=== PATIENT | male | born 1950 | race Caucasian/White ===

== ENCOUNTER 2024-03-08 12:40 | Emergency (ER) | payer MEDICARE, OTHER, SELFPAY ==
[2024-03-08] VITALS (8 sets, daily range): BP systolic 160–195; BP diastolic 93–111; BMI 35.7
[2024-03-08 14:34] LABS: Hematocrit 41.6 % (39.0-52.0); Hemoglobin 14.1 g/dL (13.0-18.0); Mean Corp Hgb Conc. 33.9 g/dL (33.0-37.0); Mean Corpuscular Hgb 28.3 pg (27.0-31.0); Mean Corpuscular Volume 83.4 fL (80.0-94.0); Mean Platelet Volume 12.3 fL (7.4-10.4); Platelet Count 166 10^3/uL (130-400); Red Blood Cell Count 4.99 10^6/uL (4.70-6.10); Red Cell Dist. Width 12.8 % (11.5-14.5); White Blood Cell Count 5.9 10^3/uL (4.8-10.8)
--- NOTE | 2024-03-08 14:40 | ED.GENMED ---
History of Present Illness
General
Chief Complaint: Chest Pain
Source: patient
Time Seen by Provider: 03/08/24 13:57
Travel History
Have you had any contact with someone who has COVID-19?: No
Do you have any symptoms of coronavirus? Fever > 100 degrees, chills, cough, shortness of breath, sore throat, loss of taste or smell, muscle aches, or headache?: No
History of Present Illness
History of Present Illness:
This patient is a 73-year-old male presents emergency department with complaints of left-sided chest started about 3 days ago, has been continuous, but is now no longer present. It went away at approximately noon today. He describes it as very
'little bit of pain', gradual in onset, without radiation, exacerbating, relieving factors. Is not pleuritic in nature. He also felt a little dyspneic yesterday now fully resolved. He denies infectious symptoms such as fever, chills, cough, sore
throat, rhinorrhea. He describes feeling more fatigued than usual. 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 Patient denies back pain, headache, dizziness, new leg swelling, abdominal pain,
nausea, vomiting, or other complaints.
Past History
Past History
ED Past Medical History: Arrthythmia, CAD, HTN and Hypercholesterolemia
ED Past Surgical History: Cardiac (Cardiac stents), Urological (Right kidney biopsy) and Other (Right inguinal hernia repair, sinus surgery)
Social History
Tobacco: Non-smoker
Alcohol: None
Drug: None
Personal:
Living: with family
Employment: Employed
Family History
Family History: Other (Noncontributory)
Phy Exam
Physical Exam
Physical Exam:
GENERAL: Alert , in no apparent distress
EYE: pupils equal and reactive
NECK: Supple, no significant adenopathy.
ENT: o/p clr, mmm.
CARDIAC: Irregular irregular
LUNGS: Clear breath sounds bilaterally, no acute respiratory distress, no wheezes/rales/rhonchi
ABDOMEN: Soft, without focal tenderness, no r/g, no cvat
NEUROLOGICAL: Alert and oriented, no focal neuro deficits
SKIN: Warm and dry, skin intact.
MUSCULOSKELETAL: No edema, well perfused.
PSYCH: Normal and appropriate interaction.
Scores
Heart Score for Chest Pain Patients
STEMI patient?: Not applicable
Course
Orders/Labs/Results
Orders:
Orders
03/08/24 12:42
Electrocardiogram (*1) Urgent
Reason for Study: Chest Pain
EKG- Treatment ONCE
03/08/24 14:16
Cardiac Monitoring- Treatment ONCE
03/08/24 14:23
Complete Blood Count/No Diff Urgent
03/08/24 15:01
Comprehensive Metabolic Panel Routine
Troponin I Routine
03/08/24 18:09
Troponin I Urgent
Abnormal Lab Results
03/08/24 03/08/24
14:23 15:01
MPV 12.3 H fL
(7.4-10.4)
Glucose 107 H mg/dl
(70-99)
03/08/24 14:23
03/08/24 15:01
Vital Signs
Initial and Last Documented VS:
Initial Vital Signs
Temp Pulse Resp BP Pulse Ox
97.9 F 60 20 195/98 100
03/08/24 12:42 03/08/24 12:42 03/08/24 12:42 03/08/24 12:42 03/08/24 12:42
Last Documented Vital Signs
Temp Pulse Resp BP Pulse Ox
97.8 F 59 18 160/103 96
03/08/24 16:30 03/08/24 19:30 03/08/24 19:30 03/08/24 19:00 03/08/24 19:30
*Critical Care Note
Total Time (30-74mins, 75-104mins- exclusive of procedures): Not Applicable
Update Note
Update Note:
Patient presents to the Emergency Department with fatigue chest pain dyspnea____
Number and Complexity of Problems Addressed at the Encounter
� Chronic conditions affecting care:
� Acute Exacerbation and/or Progression of Chronic Illness:
� Differential Diagnosis includes: But not limited to ACS, arrhythmia, electrolyte disorder, etc.
Amount and/or Complexity of Data to be Reviewed and Analyzed
� I performed an independent evaluation of and my interpretation is:
EKG: Read by me, tSeve-amber, rate 65, no acute ischemia
CT:
Xrays:
Laboratory Studies:unremarkable
Other:
� Review of other/old records reveals:
� Clinical information was obtained by an independent historian: Son who is bedside
� Prescriptions/Medications Considered but not given: Considered anticoagulation however patient is already fully anticoagulated.
� Further testing considered but not performed:
Risk of Complications and/or Morbidity or Mortality of Patient Management
� Social determinants of health affecting care:
� Discussion with other providers (PCP, Hospitalists, Consultants, etc):
� Escalation of care including admission/observation vs risk of discharge considered:451pm reasessment, pt remains stable, comfortable, no complnts. Dw him findings thus far, recommendation for repeat trop. If wnl, will d/c with
recommendatino for cards f/u. Aware he is in afib, however he is on a DOAC and no rvr or sxs related.
ED Attending Note
-
Portions of this chart may have been created with voice recognition software.� Occasional wrong word or��sound alike� substitutions may have occurred due to the inherent limitations of voice recognition software.
Discharge Plan
Departure
Patient Disposition: Home (Routine Discharge)
Patient with high blood pressure during this ER visit?: Yes
Condition: Good
Discharge Problem:
Chest pain
Instructions: Chest Pain DCA Follow Up, BLOOD PRESSURE
Prescriptions:
No Action
atorvastatin 40 MG tablet
40 mg PO HS
finasteride 5 MG tablet
5 mg PO HS
aspirin 81 MG tablet,delayed release (DR/EC)
81 mg PO HS
metoprolol succinate 25 MG tablet extended release 24 hr
25 mg PO HS Qty: 60 0RF
apixaban [Eliquis] 5 MG tablet
5 mg PO BID Qty: 120 0RF
cephalexin 500 mg capsule
500 mg PO Q8H 7 Days Qty: 21 0RF
prednisone 20 mg tablet
40 mg PO DAILY Qty: 8 0RF
omeprazole 40 mg capsule,delayed release(DR/EC)
40 mg PO DAILY Qty: 5 0RF
Referrals:
Russel Gupta MD [Family Provider] -
Activity Restrictions/Additional Instructions:
YOUR BLOOD PRESSURE IS ELEVATED TODAY. PLEASE TAKE YOUR BLOOD PRESSURE MEDICATION DIRECTED, AND CONTACT YOUR SLUDGE CONTROL OPERATOR TOMORROW FOR CONTINUED FOLLOW UP. IF YOU DEVELOP CHEST PAIN, TROUBLE BREATHING, VOMITING, DIZZINESS, OR OTHER WORRISOME
SIGNS, GO TO THE ER IMMEDIATELY!
Interventions
Interventions:
*Risk Screen - Suicide Last Done: 03/08/24 19:41
*General Assessment Last Done: 03/08/24 14:00
*Neglect/Abuse Screening Last Done: 03/08/24 14:00
ED- Fall Risk Assessment Last Done: 03/08/24 15:18
*ED COVID-19 Vaccine History Last Done: 03/08/24 14:00
*Nursing Disposition Last Done: 03/08/24 19:41
ED- Cardiac Assessment Last Done: 03/08/24 15:18
Discharge Date and Time
Discharge Date/Time: 03/08/24 19:42
Print Language: LATVIAN
[2024-03-08 15:21] LABS: ALT (SGPT) 16 U/L (0-50); AST (SGOT) 21 U/L (17-59); Albumin 3.8 g/dl (3.5-5.0); Alkaline Phosphatase 109 U/L (38-126); Blood Urea Nitrogen 18 mg/dl (9-20); Calcium 9.2 mg/dl (8.4-10.2); Carbon Dioxide 30 mmol/L (22-30); Chloride 104 mmol/L (98-107); Estimated Creatinine Clearance 87 ml/min; Glucose 107 mg/dl (70-99); Potassium 4.6 mmol/L (3.5-5.1); Sodium 139 mmol/L (135-145); Total Bilirubin 1.3 mg/dl (0.2-1.3); Total Protein 6.6 g/dl (6.3-8.2); eGFR > 60.00
[2024-03-08 15:32] LABS: Troponin I < 0.012 ng/ml
[2024-03-08 18:39] LABS: Troponin I < 0.012 ng/ml
== END 2024-03-08 19:42 | disposition home or self-care (01) ==
LOC: EMR 12:40
PROVIDERS: EMERGENCY PHYSICIAN Emergency Medicine; FAMILY PHYSICIAN Internal Medicine; OTHER PHYSICIAN Internal Medicine Interventional Cardiology
DX: R07.89 Other chest pain (principal); I25.10 Atherosclerotic heart disease of native coronary artery without angina pectoris; I10 Essential (primary) hypertension; E78.00 Pure hypercholesterolemia, unspecified; I48.91 Unspecified atrial fibrillation; Z95.5 Presence of coronary angioplasty implant and graft
CPT/HCPCS: 99283; 80053; 84484; 85027; 93005

== ENCOUNTER 2024-09-01 05:28 | Emergency (ER) | payer MEDICARE, OTHER, SELFPAY ==
[2024-09-01 05:36] VITALS: BP 170/90
[2024-09-01 06:12] VITALS: BMI 35.4
--- NOTE | 2024-09-01 07:46 | ED.GENMED ---
History of Present Illness
General
Chief Complaint: Nose Bleed
Source: patient
Exam Limitations: none
Time Seen by Provider: 09/01/24 07:22
History of Present Illness
History of Present Illness:
74-year-old male on Eliquis presents with onset of left-sided nasal bleeding starting this morning. It has been ongoing since then he has been unable to get a stop bleeding. Last dose of Eliquis was last evening. He has dealt with this in the
past occasionally. He denies lightheadedness shortness of breath or headache. No other
Past History
Past History
ED Past Medical History: Arrthythmia, CAD, HTN and Hypercholesterolemia
ED Past Surgical History: Cardiac (Cardiac stents), Urological (Right kidney biopsy) and Other (Right inguinal hernia repair, sinus surgery)
Social History
Tobacco: Non-smoker
Alcohol: None
Drug: None
Personal:
Living: with family
Employment: Employed
Family History
Family History: Other (Noncontributory)
Phy Exam
Physical Exam
Physical Exam:
General: Well-appearing male no acute respiratory distress
HEENT: Normal atraumatic left nasal cavity inspected after current packing was removed. Large clot was removed from the nose. There is an area of bleeding noted in anterior aspect of the medial portion of the left side of the nose.
Extremities: No cyanosis
Course
Vital Signs
Initial and Last Documented VS:
Initial Vital Signs
Temp Pulse Resp BP Pulse Ox
98 F 66 22 170/90 98
09/01/24 05:36 09/01/24 05:36 09/01/24 05:36 09/01/24 05:36 09/01/24 05:36
Last Documented Vital Signs
Temp Pulse Resp BP Pulse Ox
98 F 67 16 140/89 96
09/01/24 05:36 09/01/24 09:03 09/01/24 09:03 09/01/24 09:03 09/01/24 09:03
MDM/Problems Addressed
Differential Diagnosis Includes:
Left sided anterior epistaxis. On Eliquis. Vital signs are stable. He is alert and oriented. Large clot was removed from the left side of the nose with suction and with gravity. Piece of cotton infused with lidocaine and epinephrine was stuffed
into the left side of the nose to provide hemostasis. Will attempt to cauterize if able to.
*Critical Care Note
Total Time (30-74mins, 75-104mins- exclusive of procedures): Not Applicable
Update Note
Update Note:
Patient reevaluated multiple times. Patient blood through silver nitrate. Tried Merocel sponge which she bled through. Then tried Surgicel which the patient blood flew. I then placed a 5.5 cm anterior balloon. This was inflated. He was
reexamined multiple times and there was no further bleeding. Recommend follow-up with ENT. Stable for discharge.
ED Attending Note
-
Portions of this chart may have been created with voice recognition software.� Occasional wrong word or��sound alike� substitutions may have occurred due to the inherent limitations of voice recognition software.
Discharge Plan
Departure
Patient Disposition: Home (Routine Discharge)
Date of Disposition: 09/01/24
Time of Disposition: 10:17
Patient with high blood pressure during this ER visit?: No
Discharge Problem:
Acute anterior epistaxis
Instructions: Nosebleeds (DC)
Prescriptions:
No Action
atorvastatin 40 MG tablet
40 mg PO HS
finasteride 5 MG tablet
5 mg PO HS
metoprolol succinate 25 MG tablet extended release 24 hr
25 mg PO HS Qty: 60 0RF
Eliquis 5 MG tablet
5 mg PO BID Qty: 120 0RF
bumetanide 1 mg Tablet
1 mg PO DAILY
amlodipine
1 pill PO DAILY
Rx Instructions:
unknown dose
carvedilol
6.25 mg PO BID
tamsulosin
0.4 mg PO DAILY
valsartan
160 mg PO DAILY
omeprazole 40 mg capsule,delayed release(DR/EC)
40 mg PO DAILY PRN (Reason: reflux)
Referrals:
Russel Gupta MD [Family Provider] -
Gisell Osorio MD [Active] -
Activity Restrictions/Additional Instructions:
Keep current packing in until seen by ENT. Please return here if worse
Interventions
Interventions:
*Risk Screen - Suicide Last Done: 09/01/24 05:36
*General Assessment Last Done: 09/01/24 06:13
*Neglect/Abuse Screening Last Done: 09/01/24 05:36
ED-EENT Assessment Last Done: 09/01/24 06:16
Discharge Date and Time
Print Language: DANISH
[2024-09-01 09:03] VITALS: BP 140/89
== END 2024-09-01 10:41 | disposition home or self-care (01) ==
LOC: EMR 05:28
PROVIDERS: EMERGENCY PHYSICIAN Emergency Medicine; FAMILY PHYSICIAN Internal Medicine
DX: R04.0 Epistaxis (principal); I25.10 Atherosclerotic heart disease of native coronary artery without angina pectoris; I10 Essential (primary) hypertension; E78.00 Pure hypercholesterolemia, unspecified; Z95.5 Presence of coronary angioplasty implant and graft
CPT/HCPCS: 99282; 30901

== ENCOUNTER 2025-07-03 08:21 | Emergency (ER) | payer MEDICARE, OTHER, SELFPAY ==
[2025-07-03 08:23] VITALS: BP 192/106
[2025-07-03 08:42] VITALS: BMI 32.9
--- NOTE | 2025-07-03 09:06 | ED.GENMED ---
History of Present Illness
General
Chief Complaint: Swelling
Source: patient
Exam Limitations: none
Time Seen by Provider: 07/03/25 08:52
Nursing documentation reviewed up to this point in time: agreed with
History of Present Illness
History of Present Illness:
Note:
CHIEF COMPLAINT(S)
Swelling and itching in the forearm following a possible insect bite.
HISTORY OF PRESENT ILLNESS
The patient is a 75-year-old male who presents with symptoms of swelling and itching in the forearm, which began after cleaning leaves the previous morning. The patient describes feeling 'like a thousand maybe... small bugs' during the activity,
suggesting potential insect bites. The symptoms started approximately 24 hours ago, around 9 AM yesterday. The patient applied alcohol and hydrocortisone cream to the affected area but did not take any oral medications. There is a concern for an
allergic reaction, and the patient reports that the area has become swollen and itchy.
PAST MEDICAL AND SURIGICAL HISTORY
The patient is currently on blood pressure medication and blood thinners.
CHRONIC MEDICAL CONDITIONS SIGNIFICANTLY AFFECTING CARE
The patient is on blood thinners, indicating a possible history relevant to cardiovascular conditions. However, the patient denies atrial fibrillation.
SOCIAL HISTORY
The patient denies smoking, alcohol consumption, and drug use.
MEDICATIONS
- Blood pressure medication
- Blood thinner taken in the morning
PHYSICAL EXAM
General: Alert, no acute distress.
Skin: Warm, with evidence of swelling on the forearm.
Head: Normocephalic, atraumatic.
Neck: Supple, trachea midline.
Eyes, ears, nose, mouth, and throat: Oral mucosa moist.
Cardiovascular: Normal peripheral perfusion, No edema.
Respiratory: Respirations are non-labored.
Gastrointestinal: Abdomen nondistended.
Back: Normal range of motion, Normal alignment.
Musculoskeletal: Normal ROM, normal strength. right forearm erythema, swelling, soft compartments
Neurological: Alert and oriented to person, place, time, and situation, No focal neurological deficit observed.
Psychiatric: Cooperative, appropriate mood & affect.
PLAN
1. Initiate a course of oral steroids to address the allergic reaction.
2. Start antibiotics to prevent secondary infection.
3. Advise the patient to keep the affected arm elevated to help reduce swelling.
4. Recommend applying ice to the affected area to alleviate symptoms.
DIFFERENTIAL DIAGNOSIS
The Differential Diagnosis includes, in no particular order and is not limited to:
1. Allergic reaction to insect bite
2. Cellulitis
3. Dermatitis
4. Contact dermatitis due to plant exposure
5. Venous stasis dermatitis
6. Urticaria
7. Insect sting hypersensitivity
8. Superficial thrombophlebitis
9. Lymphedema
10. Soft tissue infection
CARE-UPDATE
07/03/25 - 09:13
The patient continues to exhibit swelling and elevated blood pressure. Notable severe reaction to multiple insect bites, now managing with topical antibiotics and oral prednisone. Monitoring for potential compartment syndrome signs in the right
forearm.
Disposition:
SUMMARY OF ENCOUNTER
The patient presented to the emergency department with symptoms of swelling and itching in the right forearm, suspected to have arisen from multiple insect bites while cleaning leaves. He experienced significant swelling and itching approximately 24
hours after the incident. The condition was managed in the emergency department with a focus on reducing the allergic reaction and preventing a potential secondary infection.
DISPOSITION
Discharge.
ASSESSMENT
The patient is experiencing an allergic reaction potentially due to insect bites. There is a concern for a possible secondary soft tissue infection which is being proactively managed.
PLAN
Initiate a short course of oral prednisone to address the allergic reaction. Prescribe an antibiotic, cephalexin, to prevent secondary infection. Advise the patient to elevate the affected arm and to follow up with primary care to reassess swelling
and any progression of symptoms.
PATIENT EDUCATION AND COUNSELING
The patient was advised on how to manage the swelling and itching at home, including keeping the arm elevated and applying ice as needed. Return precautions and signs of potential worsening conditions or complications were thoroughly discussed.
FOLLOW-UP INSTRUCTIONS
The patient was instructed to schedule a follow-up visit with his primary care physician to re-evaluate the forearms condition and ensure the effectiveness of the treatment.
MEDICATION RECONCILIATION
Prednisone prescribed for a short course. Cephalexin prescribed for infection prevention.
MEDICAL DECISION MAKING
-Complexity of Data Reviewed: Chronic conditions affecting care include the patients history of cardiovascular conditions managed by blood pressure medications and blood thinners. Differential diagnoses considered were an allergic reaction to insect
bites, cellulitis, dermatitis, contact dermatitis due to plant exposure, venous stasis dermatitis, urticaria, insect sting hypersensitivity, superficial thrombophlebitis, lymphedema, and soft tissue infection.
-Data:
Category 1: Reviews of external records were not explicitly mentioned.
-Risk: Consideration of Admission/Observation: Escalation of care including admission/observation was considered given the complexity and risk of the patients presenting complaint, exam findings, and underlying comorbidities. However, ultimately the
patient is considered safe for outpatient management with close follow-up. Work-up is reassuring and does not reveal any acute life/organ threatening processes; patients symptoms are well controlled upon reevaluation; reexamination is reassuring;
vitals are stable; the patient agrees with discharge and is reliable for follow-up.
DIAGNOSIS
Allergic reaction from insect bites (ICD-10: T78.40XA) and possible secondary infection (ICD-10: L03.90).
Past History
Past History
ED Past Medical History: Arrthythmia, CAD, HTN and Hypercholesterolemia
ED Past Surgical History: Cardiac (Cardiac stents), Urological (Right kidney biopsy) and Other (Right inguinal hernia repair, sinus surgery)
Social History
Tobacco: Non-smoker
Alcohol: None
Drug: None
Personal:
Living: with family
Employment: Employed
Family History
Family History: Other (Noncontributory)
Phy Exam
Physical Exam
Physical Exam:
.
Scores
Heart Failure Risk
Heart Failure Risk Score: Not Applicable
Course
Orders/Labs/Results
Orders:
Orders
07/03/25 09:05
Ice Pack-Treatment DIRECTED
Location: forearm right
Vital Signs- Treatment ONCE
Frequency: Once
Prednisone [Deltasone] 50 mg PO NOW STA
Vital Signs
Initial and Last Documented VS:
Initial Vital Signs
Temp Pulse Resp BP Pulse Ox
98.6 F 85 16 192/106 99
07/03/25 08:23 07/03/25 08:23 07/03/25 08:23 07/03/25 08:23 07/03/25 08:23
Last Documented Vital Signs
Temp Pulse Resp BP Pulse Ox
98.6 F 85 16 192/106 99
07/03/25 08:23 07/03/25 08:23 07/03/25 08:23 07/03/25 08:23 07/03/25 09:06
*Pulse Oximetry
SaO2: 99
Oxygen Mode of Delivery: Room air
Patient hypoxic: no
*Critical Care Note
Total Time (30-74mins, 75-104mins- exclusive of procedures): Not Applicable
ED Attending Note
-
Portions of this chart may have been created with voice recognition software.� Occasional wrong word or��sound alike� substitutions may have occurred due to the inherent limitations of voice recognition software.
Discharge Plan
Departure
Patient Disposition: Home (Routine Discharge)
Date of Disposition: 07/03/25
Time of Disposition: 09:07
Patient with high blood pressure during this ER visit?: Yes
Discharge Problem:
Insect bite of forearm, right
Instructions: Insect bites and stings - ED (DC)
Prescriptions:
New
cephalexin 500 mg capsule
500 mg PO TID 7 Days Qty: 21 0RF
prednisone 50 mg tablet
50 mg PO DAILY Qty: 5 0RF
No Action
atorvastatin 40 MG tablet
40 mg PO HS
finasteride 5 MG tablet
5 mg PO HS
metoprolol succinate 25 MG tablet extended release 24 hr
25 mg PO HS Qty: 60 0RF
Eliquis 5 MG tablet
5 mg PO BID Qty: 120 0RF
bumetanide 1 mg Tablet
1 mg PO DAILY
amlodipine
1 pill PO DAILY
Rx Instructions:
unknown dose
carvedilol
6.25 mg PO BID
tamsulosin
0.4 mg PO DAILY
valsartan
160 mg PO DAILY
omeprazole 40 mg capsule,delayed release(DR/EC)
40 mg PO DAILY PRN (Reason: reflux)
Activity Restrictions/Additional Instructions:
Follow up with primary care in 3-5 days. Return for any concerns. Elevate the arm above your heart at all times.
Interventions
Interventions:
*Risk Screen - Suicide Last Done: 07/03/25 08:23
*General Assessment Last Done: 07/03/25 08:23
*Neglect/Abuse Screening Last Done: 07/03/25 08:23
*ED- Fall Risk Assessment Last Done: 07/03/25 08:40
*ED COVID-19 Vaccine History Last Done: 07/03/25 08:23
ED- Cardiac Assessment Last Done: 07/03/25 08:40
ED- Pulmonary Assessment Last Done: 07/03/25 08:40
ED-Skin Assessment Last Done: 07/03/25 08:40
Discharge Date and Time
Print Language: [id number]
[2025-07-03 09:35] VITALS: BP 151/94
[2025-07-03] MEDS: DELTASONE 50 MG PO (09:35)
== END 2025-07-03 09:39 | disposition home or self-care (01) ==
LOC: EMR 08:21
PROVIDERS: EMERGENCY PHYSICIAN Emergency Medicine; FAMILY PHYSICIAN Internal Medicine
DX: T63.481A Toxic effect of venom of other arthropod, accidental (unintentional), initial encounter (principal); Y93.H2 Activity, gardening and landscaping; I25.10 Atherosclerotic heart disease of native coronary artery without angina pectoris; I49.9 Cardiac arrhythmia, unspecified; I10 Essential (primary) hypertension; E78.00 Pure hypercholesterolemia, unspecified; Z79.01 Long term (current) use of anticoagulants; Z95.5 Presence of coronary angioplasty implant and graft
CPT/HCPCS: 99283

== ENCOUNTER 2025-08-15 14:11 | Emergency (ER) | payer MEDICARE, OTHER, SELFPAY ==
[2025-08-15 14:13] VITALS: BP 185/104
[2025-08-15 14:35] LABS: Hematocrit 43.0 % (39.0-52.0); Hemoglobin 14.2 g/dL (13.0-18.0); Mean Corp Hgb Conc. 33.0 g/dL (33.0-37.0); Mean Corpuscular Volume 81.6 fL (80.0-94.0); Nucleated Red Blood Cells % 0 % (-); Platelet Count 150 10^3/uL (130-400); Red Cell Dist. Width 13.7 % (11.5-14.5)
[2025-08-15 14:51] LABS: ALT (SGPT) 20 U/L (0-50); AST (SGOT) 21 U/L (17-59); Albumin 4.1 g/dl (3.5-5.0); Alkaline Phosphatase 105 U/L (38-126); Blood Urea Nitrogen 15 mg/dl (9-20); Calcium 9.3 mg/dl (8.4-10.2); Carbon Dioxide 29 mmol/L (22-30); Chloride 106 mmol/L (98-107); Glucose 103 mg/dl (70-99); Potassium 4.7 mmol/L (3.5-5.1); Sodium 138 mmol/L (135-145); Total Protein 6.9 g/dl (6.3-8.2); eGFR > 60.00
[2025-08-15 15:03] LABS: COVID-19 Antigen Negative (Negative)
[2025-08-15 15:12] LABS: Troponin I < 0.012 ng/ml
[2025-08-15 15:24] VITALS: BP 200/101
--- NOTE | 2025-08-15 15:42 | ED.GENMED ---
History of Present Illness
General
Chief Complaint: Breathing Problem
Source: patient
Exam Limitations: none
Time Seen by Provider: 08/15/25 15:21
Nursing documentation reviewed up to this point in time: agreed with
History of Present Illness
History of Present Illness:
75-year-old male with history of migraines, CAD, HTN, HLD, cardiac stents, BPH, hernia repair, appendectomy presents for shortness of breath past 2 days. Also had 'sour' stomach for past week, took TUMS yesterday with relief. Denies CP, abd pain.
Denies n/v/d/c. Denies fever/chills. Son at bedside states he noted pt being a little winded as he was walking yesterday and today.
Past History
Past History
ED Past Medical History: Arrthythmia, CAD, HTN and Hypercholesterolemia
ED Past Surgical History: Cardiac (Cardiac stent 2007), Urological (Right kidney biopsy) and Other (Right inguinal hernia repair, sinus surgery)
Social History
Tobacco: Non-smoker
Alcohol: None
Drug: None
Personal:
Living: with family
Employment: Retired
Family History
Family History: Other (Noncontributory)
Review of Systems
Review of Systems
Allergies reviewed?: Yes
All Other Systems: ROS reviewed and negative except as documented in HPI and ROS
Constitutional: Reports fatigue; Denies fever or chills
EENT: Denies sore throat
Respiratory: Reports trouble breathing; Denies cough
Cardiac: Denies chest pain, diaphoresis or palpitations
ABD/GI: Denies abdominal pain, nausea, vomiting or diarrhea
: Denies dysuria or difficulty voiding
Musculoskeletal: Denies edema
Skin: Reports no symptoms
Neurological: Reports no symptoms
Phy Exam
Physical Exam
Physical Exam:
GENERAL: No acute distress. A&Ox3.
CONSTITUTIONAL: Afebrile.
EYES: clear, conjunctivae normal
ENMT: moist mucus membranes, Pharynx nl
RESPIRATORY: Regular respirations, nonlabored, lungs clear.
CARDIOVASCULAR: Regular rate and rhythm, no murmurs, no rubs.
GI: Soft, nontender, normal BS
MUSCULOSKELETAL: Moves with ease. Well perfused. No edema
SKIN: Warm, dry, pink
PSYCH: Normal mood and affect. Well kept, interactive and appropriate
NEUROLOGIC: Awake, alert and oriented. No focal neurological deficits
Scores
Heart Failure Risk
Heart Failure Risk Score: Not Applicable
Course
Orders/Labs/Results
Orders:
Orders
08/15/25 14:12
Electrocardiogram (*1) Urgent
Reason for Study: Shortness of Breath
08/15/25 14:13
EKG- Treatment ONCE
08/15/25 14:27
CMP [Comprehensive Metabolic Panel] Urgent
COVID-19 Antigen Urgent
Source: Nasal Swab
Complete Blood Count/With Diff Urgent
NT-proBNP Urgent
Comment: ADD ON
Troponin I Urgent
Influenza A+B Rapid Molecular Urgent
FABIANO Source: Nasal Swab
Specimen Description:
08/15/25 15:21
CR Chest - 2 Views Urgent
Comment:
Reason For Exam: SOB, cough
08/15/25 15:58
Add On- LAB Urgent
Tests Added?: BNP
Abnormal Lab Results
08/15/25
14:27
MCH 26.9 L pg
(27.0-31.0)
MPV 12.4 H fL
(7.4-10.4)
Absolute Monos (auto) 0.9 H 10^3/uL
(0.1-0.6)
Monocytes % 13.1 H %
(1.7-9.3)
Glucose 103 H mg/dl
(70-99)
Total Bilirubin 1.4 H mg/dl
(0.2-1.3)
08/15/25 14:27
08/15/25 14:27
Vital Signs
Initial and Last Documented VS:
Initial Vital Signs
Temp Pulse Resp BP Pulse Ox
97.9 F 55 19 185/104 98
08/15/25 14:13 08/15/25 14:13 08/15/25 14:13 08/15/25 14:13 08/15/25 14:13
Last Documented Vital Signs
Temp Pulse Resp BP Pulse Ox
97.9 F 67 21 193/95 97
08/15/25 14:13 08/15/25 16:30 08/15/25 16:30 08/15/25 16:45 08/15/25 16:30
MDM/Problems Addressed
Differential Diagnosis Includes:
viral URI, Bronchitis, pneumonia, CHF
MDM/Problems Addressed:
75-year-old male with history of migraines, CAD, HTN, HLD, cardiac stents, BPH, hernia repair, appendectomy presents for shortness of breath past 2 days. Also had 'sour' stomach for past week, took TUMS yesterday with relief. Denies CP, abd pain.
Denies n/v/d/c. Denies fever/chills. Son at bedside states he noted pt being a little winded as he was walking yesterday and today.
Afebrile, NAD
EKG bradycardic with atrial fib heart rate 56
No hypoxemia, lungs CTA
CBC, CMP within normal limits
Troponin normal
COVID-negative
4:40 PM:
CXR: Radiology report read: IMPRESSION:
Opacification left costophrenic angle concerning for developing pneumonia. Atelectasis not completely excluded. New. Mild.
Moderate hiatal hernia. Improved.
Patient ambulated around the ER with brisk walk and pulse ox maintained at 98%.
Stable for discharge
Plan: Doxycycline 100 twice daily for 10 days, follow-up with PCP
*Pulse Oximetry
SaO2: 98
Oxygen Mode of Delivery: Room air
Patient hypoxic: no
*EKG
EKG Intrepretation Date: 08/15/25
Interpretation: abnormal
Heart Rate: 56
Rate: bradycardiac
Rhythm: a-fib
[place]: normal axis
QRS Pattern: normal QRS
Ischemia: no ischemia
*Critical Care Note
Total Time (30-74mins, 75-104mins- exclusive of procedures): Not Applicable
ED Attending Note
-
Portions of this chart may have been created with voice recognition software.� Occasional wrong word or��sound alike� substitutions may have occurred due to the inherent limitations of voice recognition software.
Discharge Plan
Departure
Patient Disposition: Home (Routine Discharge)
Date of Disposition: 08/15/25
Time of Disposition: 16:43
Patient with high blood pressure during this ER visit?: Yes
Condition: Good
Discharge Problem:
Pneumonia, Essential (primary) hypertension
Instructions: Pneumonia in adults - ED (DC), BLOOD PRESSURE
Prescriptions:
New
doxycycline hyclate 100 mg tablet
100 mg PO BID Qty: 20 0RF
No Action
atorvastatin 40 MG tablet
40 mg PO HS
finasteride 5 MG tablet
5 mg PO HS
metoprolol succinate 25 MG tablet extended release 24 hr
25 mg PO HS Qty: 60 0RF
Eliquis 5 MG tablet
5 mg PO BID Qty: 120 0RF
bumetanide 1 mg Tablet
1 mg PO DAILY
amlodipine
1 pill PO DAILY
Rx Instructions:
unknown dose
carvedilol
6.25 mg PO BID
tamsulosin
0.4 mg PO DAILY
valsartan
160 mg PO DAILY
omeprazole 40 mg capsule,delayed release(DR/EC)
40 mg PO DAILY PRN (Reason: reflux)
cephalexin 500 mg capsule
500 mg PO TID 7 Days Qty: 21 0RF
prednisone 50 mg tablet
50 mg PO DAILY Qty: 5 0RF
Referrals:
Russel Gupta MD [Family Provider, Internal Medicine] - Call in 1-3 days for appt
UNKNOWN - PT DOES,NOT KNOW [Unknown Provider]
Activity Restrictions/Additional Instructions:
As we discussed, you have an early developing pneumonia
I sent a prescription to your pharmacy for Doxycycline antibiotic to take twice a day for 10 days.
See your doctor in 7-10 days for recheck.
Return here immediately for worsening trouble breathing, vomiting, fever above 100.5 not relieved with Tyelenol, shaking chills, or feeling sicker in any way.
Drink plenty of water/fluids
Check your blood pressure over the next few days at home under comp circumstances and if it remains high please discuss with your doctor as your medications may need to be adjusted
Interventions
Interventions:
*Risk Screen - Suicide Last Done: 08/15/25 14:14
*General Assessment Last Done: 08/15/25 14:14
*Neglect/Abuse Screening Last Done: 08/15/25 14:14
*ED- Fall Risk Assessment Last Done: 08/15/25 16:49
*ED COVID-19 Vaccine History Last Done: 08/15/25 14:14
*ED Influenza Vaccine History Last Done: 08/15/25 14:14
*Nursing Disposition Last Done: 08/15/25 16:49
ED- Cardiac Assessment Last Done: 08/15/25 16:48
ED- Pulmonary Assessment Last Done: 08/15/25 16:48
Discharge Date and Time
Discharge Date/Time: 08/15/25 16:49
Print Language: GEORGIAN
[2025-08-15 16:45] VITALS: BP 193/95
== END 2025-08-15 16:49 | disposition home or self-care (01) ==
LOC: EMR 14:11
PROVIDERS: Emergency Medicine; EMERGENCY PHYSICIAN Emergency Medicine; FAMILY PHYSICIAN Internal Medicine
DX: J18.9 Pneumonia, unspecified organism (principal); I10 Essential (primary) hypertension; K44.9 Diaphragmatic hernia without obstruction or gangrene; I25.10 Atherosclerotic heart disease of native coronary artery without angina pectoris; E78.00 Pure hypercholesterolemia, unspecified; N40.0 Benign prostatic hyperplasia without lower urinary tract symptoms; Z95.5 Presence of coronary angioplasty implant and graft
CPT/HCPCS: 99284; 71046; 80053; 83880; 84484; 85025; 87502; 87811; 93005